=== PATIENT | female | born 1970 | race African-American/Black ===

== ENCOUNTER 2017-12-16 07:35 | Emergency (ER) | payer BC ==
[~2017-12-16] VITALS: Ht 165.1 cm; Wt 163.3 kg
[2017-12-16] MEDS ORDERED: ATORVASTATIN CA40 MG PO (07:57)
[2017-12-16] MEDS ORDERED: INVOKANA300 MG PO (07:57)
[2017-12-16] MEDS ORDERED: COZAAR 50 MG TA50 M2 PO (07:57)
[2017-12-16] MEDS ORDERED: NORCO 5-325 TA1 EACH PO (09:40)
[2017-12-16 10:10] VITALS: BP 115/87
== END 2017-12-16 10:11 | disposition home or self-care (01) ==
LOC: M.ERS 07:35
DX: M25.562 Pain in left knee (principal); I10 Essential (primary) hypertension; E11.9 Type 2 diabetes mellitus without complications

== ENCOUNTER 2017-12-27 09:23 | Emergency (ER) | payer BC ==
[~2017-12-27] VITALS: Ht 162.6 cm; Wt 149.7 kg
[~2017-12-27 09:23] MED LIST: ATORVASTATIN CA40 MG PO; COZAAR 50 MG TA50 M2 PO; INVOKANA300 MG PO; NORCO 5-325 TA1 EACH PO
[2017-12-27 10:15] LABS: INFLUENZA A ANTIGEN None Detected (None Detect)
[2017-12-27] MEDS ORDERED: OSELB75 PO (10:22)
[2017-12-27 10:33] VITALS: BP 111/82
== END 2017-12-27 10:33 | disposition home or self-care (01) ==
LOC: M.ERS 09:23
PROVIDERS: Family Medicine
DX: J10.1 Influenza due to other identified influenza virus with other respiratory manifestations (principal); I10 Essential (primary) hypertension; E11.9 Type 2 diabetes mellitus without complications; E78.00 Pure hypercholesterolemia, unspecified